=== PATIENT | female | born 1975 | race Two or more races ===

== ENCOUNTER 2023-12-17 10:51 | Emergency (ER) | payer OTHER ==
[~2023-12-17] VITALS: Ht 165.1 cm; Wt 82.6 kg
[2023-12-17] MEDS ORDERED: GLUMETZA500 MG PO (11:21)
[2023-12-17] MEDS ORDERED: DEXAMETHASONE SODIUM PHOSPHATE 4 MG/ML VIAL IM STA (11:53)
[2023-12-17] MEDS ORDERED: DIPHENHYDRAMINE HCL 50 MG CAPSULE PO STA (11:54)
[2023-12-17] MEDS ORDERED: DEXAMETHASONE SODIUM PHOSPHATE 4 MG/ML VIAL ONE (11:59)
[2023-12-17] MEDS ORDERED: DIPHENHYDRAMINE HCL 25 MG CAPSULE PO STA (12:27)
== END 2023-12-17 12:42 | disposition home or self-care (01) ==
LOC: ER 10:52
DX: L20.9 Atopic dermatitis, unspecified (principal); E11.9 Type 2 diabetes mellitus without complications; Z79.84 Long term (current) use of oral hypoglycemic drugs; Z91.013 Allergy to seafood